=== PATIENT | female | born 1945 | race Caucasian/White ===

== ENCOUNTER 2016-09-25 14:48 | Emergency (ER) | payer MEDICARE, OTHER ==
[~2016-09-25] VITALS: Ht 162.6 cm; Wt 140.0 kg
[~2016-09-25 14:48] MED LIST: ASPI81CH3 CHEW; CARV12.52 PO; DAKINSHST TOPICAL; GABA400C5 PO; HYDR-2374 PO; LIDO2GEL11 TOPICAL; LIPI10TA PO; LOSA50TA PO
[2016-09-25 14:50] VITALS: BP 150/70; PULSE 61; RESP 17; TEMP 97.9; O2SAT 97
[2016-09-25] MEDS ORDERED: GABA400C5 PO (18:38)
--- NOTE | 2016-09-25 18:43 | PD ---
HPI Chief Complaint: Fall Time Seen by Provider: 18:27 Travel History International Travel<30 days: No Contact w/Intl Traveler<30days: No Traveled to known affect area: No History of Present Illness HPI 71-year-old female here for evaluation of left hand laceration, left hand pain, left-sided rib pain after a mechanical trip and fall at around 2:30 PM this afternoon. Patient reports that she was holding a wine glass in each of her hands when she tripped and fell to the ground. She reports a laceration to the dorsal aspect of her left hand with significant amount of bleeding. She stopped taking aspirin 81 mg daily about a week ago, however took a dose yesterday. She denies any other antiplatelets or anticoagulants. She is complaining of some numbness/tingling in her left fifth finger. She is right- handed. She denies dyspnea, however is having left-sided chest discomfort with inspiration as well as left-sided chest tenderness. She denies head injury or LOC. No head, neck, or back pain. PFSH Past Medical History Diabetes: Yes Social History Tobacco Use: No (Former smoker) Allergies-Medications (Allergen,Severity, Reaction): Coded Allergies: No Known Allergies (Unverified , 09/25/16) Reported Meds & Prescriptions Reported Meds & Active Scripts Active Dakins Solution Half Strength Topical (Sodium Hypochlorite) 0.2-0.25 % Soln 473 Ml TOPICAL DAILY Hydrocodone-Acetaminophen 10-300 Tab 1 Tab PO Q6H PRN Reported Gabapentin 400 Mg Cap 400 Cap PO HS Aspirin 81 Low Dose (Aspirin) 81 Mg Chew 81 Mg CHEW DAILY Carvedilol 12.5 Mg Tab 12.5 Mg PO BID Lipitor (Atorvastatin Calcium) 10 Mg Tab 10 Mg PO HS Losartan (Losartan Potassium) 50 Mg Tab 50 Mg PO BID Review of Systems Except as stated in HPI: all other systems reviewed are Neg Physical Exam Narrative GENERAL: Well-developed, well-nourished, pleasant, comfortable, GCS 15, no apparent distress. SKIN: Focused skin assessment warm/dry. Dorsal aspect of left hand with horizontal laceration over the fourth and fifth MCP joint, moderate depth, approximately 4cm in length, no visible contaminants, mild venous bleeding. HEAD: Atraumatic. Normocephalic. EYES: Pupils equal and round. No scleral icterus. No injection or drainage. ENT: Mucous membranes pink and moist. NECK: Trachea midline. No JVD. CARDIOVASCULAR: Regular rate and rhythm. Bilateral distal radial pulses are brisk and equal. Capillary refill in all of left hand is less than 2 seconds. RESPIRATORY: No accessory muscle use. Clear to auscultation. Breath sounds equal bilaterally. GASTROINTESTINAL: Abdomen soft, nondistended. Moderate left upper quadrant abdominal tenderness without peritoneal signs. Rest of abdomen is soft and nontender. MUSCULOSKELETAL: No obvious deformities. No clubbing. No cyanosis. No edema. Left anterior and lateral chest wall tenderness without step-off, without crepitus, without paradoxical chest wall movement. Skin exam as above. Patient unable to extend her left fourth and fifth fingers at the MCP joint. She is able to flex these fingers, however this causes pain. NEUROLOGICAL: Awake and alert. No obvious cranial nerve deficits. Motor grossly within normal limits. Normal speech. PSYCHIATRIC: Appropriate mood and affect; insight and judgment normal. Data Data Last Documented VS Vital Signs Date Time Temp Pulse Resp B/P Pulse Ox O2 Delivery O2 Flow Rate FiO2 09/25/16 19:10 97 09/25/16 14:50 97.9 61 17 150/70 Orders Complete Blood Count With Diff (09/25/16 18:35) Comprehensive Metabolic Panel (09/25/16 18:35) Prothrombin Time / Inr (Pt) (09/25/16 18:35) Act Partial Throm Time (Ptt) (09/25/16 18:35) Iv Access Insert/Monitor (09/25/16 18:35) Ecg Monitoring (09/25/16 18:35) Oximetry (09/25/16 18:35) Sodium Chloride 0.9% Flush (Ns Flush) (09/25/16 18:45) Cefazolin 2 Gm Premix (Ancef 2 Gm Premix (09/25/16 18:45) Tetanus/Diphtheria Tox Adult (Tetanus/Di (09/25/16 18:45) Chest, Single Ap (09/25/16 ) Ct Abd/Pel W Iv Contrast(Rout) (09/25/16 18:35) Ct Thorax/ Chest W Iv Contrast (09/25/16 18:35) Hand, Complete (Xim0how) (09/25/16 ) Morphine Inj (Morphine Inj) (09/25/16 18:45) Ondansetron Inj (Zofran Inj) (09/25/16 18:45) Splint Or Brace Apply/Monitor (09/25/16 20:27) Povidone Iodine 10% Oint (Betadine 10% O (09/25/16 20:30) Iohexol 350 Inj (Omnipaque 350 Inj) (09/25/16 21:05) Fiberglass Splint Forearm Adul (09/25/16 ) Labs Laboratory Tests Test 09/25/16 19:00 White Blood Count 10.5 TH/MM3 Red Blood Count 4.20 MIL/MM3 Hemoglobin 12.3 GM/DL Hematocrit 36.5 % Mean Corpuscular Volume 87.1 FL Mean Corpuscular Hemoglobin 29.2 PG Mean Corpuscular Hemoglobin 33.6 % Concent Red Cell Distribution Width 13.5 % Platelet Count 241 TH/MM3 Mean Platelet Volume 8.7 FL Neutrophils (%) (Auto) 69.0 % Lymphocytes (%) (Auto) 22.2 % Monocytes (%) (Auto) 6.9 % Eosinophils (%) (Auto) 1.4 % Basophils (%) (Auto) 0.5 % Neutrophils # (Auto) 7.2 TH/MM3 Lymphocytes # (Auto) 2.3 TH/MM3 Monocytes # (Auto) 0.7 TH/MM3 Eosinophils # (Auto) 0.1 TH/MM3 Basophils # (Auto) 0.0 TH/MM3 CBC Comment DIFF FINAL Differential Comment Prothrombin Time 11.4 SEC Prothromb Time International 1.0 RATIO Ratio Activated Partial 25.6 SEC Thromboplast Time Sodium Level 140 MEQ/L Potassium Level 4.0 MEQ/L Chloride Level 105 MEQ/L Carbon Dioxide Level 26.9 MEQ/L Anion Gap 8 MEQ/L Blood Urea Nitrogen 19 MG/DL Creatinine 0.73 MG/DL Estimat Glomerular Filtration 79 ML/MIN Rate Random Glucose 95 MG/DL Calcium Level 9.2 MG/DL Total Bilirubin 1.3 MG/DL Aspartate Amino Transf 21 U/L (AST/SGOT) Alanine Aminotransferase 23 U/L (ALT/SGPT) Alkaline Phosphatase 87 U/L Total Protein 7.3 GM/DL Albumin 3.4 GM/DL [facility] Medical Decision Making Medical Screen Exam Complete: Yes Emergency Medical Condition: Yes Differential Diagnosis Hand laceration, tendon laceration, open hand fracture, rib fractures, hemothorax, pneumothorax, rib contusions, intra-abdominal trauma Narrative Course Vital signs show heart rate 61, blood pressure 150/70, pulse ox 97% on room air , oral temp of 97.9F. Left hand x-ray: No acute fracture or malalignment. Osteopenia and osteoarthritic changes. Case discussed with on-call hand surgeon Dr. Coffey regarding laceration over the dorsal aspect of the patient's left hand over the fourth and fifth MCP joints with likely tendon involvement as the patient is unable to extend her third and fourth fingers. The fingers are neurovascularly intact with normal capillary refill. Patient does complain of some numbness in her left fifth finger, however she does have sensation. There are no visible contaminants in the wound. He recommends closing the wound and splinting the patient's fingers in extension. He would like the patient to call his office tomorrow to arrange for a follow-up appointment tomorrow. Left hand laceration repaired by my PA. See his note for further details. CT thorax: CONCLUSION: Negative trauma CT. CT abdomen pelvis: CONCLUSION: 1. Negative trauma CT with no evidence of visceral injury 2. Mild to moderate diverticulosis. 3. Status post cholecystectomy Left third, fourth, and fifth fingers splinted in extension. Patient and the patient's were made aware of all findings. She is stable for discharge home. She has pain medication at home. She will follow- up with hand surgeon Dr. Coffey tomorrow. She was informed on when to return to the emergency department. She verbalizes understanding and agreement with plan. Diagnosis Primary Impression: Laceration of left hand Qualified Code: S61.412A - Laceration of left hand without foreign body, initial encounter Additional Impressions: Fall Qualified Code: W19.XXXA - Fall, initial encounter Chest wall contusion Qualified Code: S20.212A - Chest wall contusion, left, initial encounter Referrals: Nancy Coffey MD 1 day Hand surgeon Primary Care Physician 3 days Additional Instructions: Follow-up with hand surgeon Dr. Coffey tomorrow. Follow-up with your primary care physician this week. Return to the emergency department for worsening symptoms or any other concerns. Disposition: 01 DISCHARGE HOME Condition: Stable Chapincito Gandara MD Sep 25, 2016 18:43
[2016-09-25] MEDS ORDERED: TETANUS/DIPHTHERIA TOXOID ADULT 0.5 ML VIAL IM ONE (18:45)
[2016-09-25] MEDS ORDERED: MORPHINE SULFATE 4 MG/ML INJ IV PUSH ONE (18:45)
[2016-09-25] MEDS ORDERED: SODIUM CHLORIDE 0.9% FLUSH 10 ML FLUSH IV FLUSH PRN (18:45)
[2016-09-25] MEDS ORDERED: ceFAZolin 2 GM PREMIX 50 ML IV ONE (18:45)
[2016-09-25] MEDS ORDERED: ONDANSETRON HCL 4 MG/2 ML VIAL IV PUSH ONE (18:45)
--- NOTE | 2016-09-25 19:02 | RADRPT ---
EXAM DATE/TIME: 09/25/2016 18:47 [facility] COMPARISON: No previous studies available for comparison. INDICATIONS : Chest pain after fall.. MEDICAL HISTORY : None. SURGICAL HISTORY : None. ENCOUNTER: Initial ACUITY: 1 day PAIN SCORE: 10 LOCATION: Bilateral chest FINDINGS: A single view of the chest demonstrates the lungs to be symmetrically aerated without evidence of mas s, infiltrate or effusion. The heart size is mildly prominent. Osseous structures are intact. CONCLUSION: Mild cardiomegaly with no acute cardiopulmonary disease. David Nobles MD on September 25, 2016 at 19:00 Board Certified Radiologist. This report was verified electronically.
--- NOTE | 2016-09-25 19:04 | RADRPT ---
EXAM DATE/TIME: 09/25/2016 18:51 [facility] COMPARISON: No previous studies available for comparison. INDICATIONS : Fall, Laceration to left posterior hand at 4th and 5th metacarpals. Sliced hand falling when caring w ine glasses out of store. MEDICAL HISTORY : None. SURGICAL HISTORY : None. ENCOUNTER: Initial ACUITY: 1 day PAIN SCORE: 8/10 LOCATION: Left hand FINDINGS: AP, lateral and oblique views of left hand were obtained and demonstrate osteoarthritic change involv ing the interphalangeal joints greatest involving the third digit with joint space narrowing and hype rtrophic change. There is no definite acute fracture or malalignment. No definite radiopaque foreign bodies are identified. There is film artifact on the lateral exam projected over the fourth middle ph alanx. The carpus appears intact. There is osteopenia. CONCLUSION: 1. No acute fracture or malalignment. 2. Osteopenia and osteoarthritic change. David Nobles MD on September 25, 2016 at 19:01 Board Certified Radiologist. This report was verified electronically.
[2016-09-25 19:10] VITALS: O2SAT 97
[2016-09-25 19:29] LABS: AUTOMATED NEUTROPHIL # 7.2 TH/MM3 (1.8-7.7); BASOPHIL % 0.5 % (0.0-2.0); EOSINOPHIL # 0.1 TH/MM3 (0-0.4); EOSINOPHIL % 1.4 % (0.0-4.0); HEMATOCRIT 36.5 % (35.0-46.0); HEMO FLAGS DIFF FINAL; LYMPH % 22.2 % (9.0-44.0); LYMPHOCYTE # 2.3 TH/MM3 (1.0-4.8); MEAN CELL VOLUME 87.1 FL (80.0-100.0); MEAN CORPUSCULAR HEMOGLOBIN 29.2 PG (27.0-34.0); MEAN CORPUSCULAR HGB CONC 33.6 % (32.0-36.0); MONO % 6.9 % (0.0-8.0); PLATELET COUNT 241 TH/MM3 (150-450); RED CELL DISTRIBUTION WIDTH 13.5 % (11.6-17.2); WHITE BLOOD COUNT 10.5 TH/MM3 (4.0-11.0)
[2016-09-25 19:39] LABS: APTT (PATIENT) 25.6 SEC (24.3-30.1); PROTHROMBIN TIME - PATIENT 11.4 SEC (9.8-11.6)
[2016-09-25 19:57] LABS: ANION GAP 8 MEQ/L (5-15); AST (GOT) 21 U/L (15-37); BICARBONATE 26.9 MEQ/L (21.0-32.0); BLOOD UREA NITROGEN 19 MG/DL (7-18); CHLORIDE 105 MEQ/L (98-107); GLOMERULAR FILTRATION RATE 79 ML/MIN (>89); SODIUM (NA) 140 MEQ/L (136-145)
[2016-09-25 19:58] LABS: ALT (GPT) 23 U/L (10-53)
[2016-09-25 20:00] LABS: ALKALINE PHOSPHATASE 87 U/L (45-117); TOTAL BILIRUBIN ADULT 1.3 MG/DL (0.2-1.0)
[2016-09-25] MEDS ORDERED: POVIDONE IODINE 10% OINT 30 GM TUBE TOPICAL ONE (20:30)
--- NOTE | 2016-09-25 20:31 | PD ---
Physical Exam Date Seen by Provider: Sep 25, 2016 Time Seen by Provider: 20:29 Narrative Skin: Patient has a laceration across the distal third of the left hand. The laceration measures approximately 6 cm. She has an obvious extensor tendon injury involving the little and ring finger. Data Data Last Documented VS Vital Signs Date Time Temp Pulse Resp B/P Pulse Ox O2 Delivery O2 Flow Rate FiO2 09/25/16 19:10 97 09/25/16 14:50 97.9 61 17 150/70 Orders Complete Blood Count With Diff (09/25/16 18:35) Comprehensive Metabolic Panel (09/25/16 18:35) Prothrombin Time / Inr (Pt) (09/25/16 18:35) Act Partial Throm Time (Ptt) (09/25/16 18:35) Iv Access Insert/Monitor (09/25/16 18:35) Ecg Monitoring (09/25/16 18:35) Oximetry (09/25/16 18:35) Sodium Chloride 0.9% Flush (Ns Flush) (09/25/16 18:45) Cefazolin 2 Gm Premix (Ancef 2 Gm Premix (09/25/16 18:45) Tetanus/Diphtheria Tox Adult (Tetanus/Di (09/25/16 18:45) Chest, Single Ap (09/25/16 ) Ct Abd/Pel W Iv Contrast(Rout) (09/25/16 18:35) Ct Thorax/ Chest W Iv Contrast (09/25/16 18:35) Hand, Complete ([id number]) (09/25/16 ) Morphine Inj (Morphine Inj) (09/25/16 18:45) Ondansetron Inj (Zofran Inj) (09/25/16 18:45) Splint Or Brace Apply/Monitor (09/25/16 20:27) Povidone Iodine 10% Oint (Betadine 10% O (09/25/16 20:30) Labs Laboratory Tests Test 09/25/16 19:00 White Blood Count 10.5 TH/MM3 Red Blood Count 4.20 MIL/MM3 Hemoglobin 12.3 GM/DL Hematocrit 36.5 % Mean Corpuscular Volume 87.1 FL Mean Corpuscular Hemoglobin 29.2 PG Mean Corpuscular Hemoglobin 33.6 % Concent Red Cell Distribution Width 13.5 % Platelet Count 241 TH/MM3 Mean Platelet Volume 8.7 FL Neutrophils (%) (Auto) 69.0 % Lymphocytes (%) (Auto) 22.2 % Monocytes (%) (Auto) 6.9 % Eosinophils (%) (Auto) 1.4 % Basophils (%) (Auto) 0.5 % Neutrophils # (Auto) 7.2 TH/MM3 Lymphocytes # (Auto) 2.3 TH/MM3 Monocytes # (Auto) 0.7 TH/MM3 Eosinophils # (Auto) 0.1 TH/MM3 Basophils # (Auto) 0.0 TH/MM3 CBC Comment DIFF FINAL Differential Comment Prothrombin Time 11.4 SEC Prothromb Time International 1.0 RATIO Ratio Activated Partial 25.6 SEC Thromboplast Time Sodium Level 140 MEQ/L Potassium Level 4.0 MEQ/L Chloride Level 105 MEQ/L Carbon Dioxide Level 26.9 MEQ/L Anion Gap 8 MEQ/L Blood Urea Nitrogen 19 MG/DL Creatinine 0.73 MG/DL Estimat Glomerular Filtration 79 ML/MIN Rate Random Glucose 95 MG/DL Calcium Level 9.2 MG/DL Total Bilirubin 1.3 MG/DL Aspartate Amino Transf 21 U/L (AST/SGOT) Alanine Aminotransferase 23 U/L (ALT/SGPT) Alkaline Phosphatase 87 U/L Total Protein 7.3 GM/DL Albumin 3.4 GM/DL MDM Medical Record Reviewed: Yes Supervised Visit with LILLIAM: Yes Interpretation(s) Last 24 hours Impressions Hand X-Ray 09/25/16 0000 Signed Impressions: Service Date/Time: Sunday, September 25, 2016 18:51 - CONCLUSION: 1. No acute fracture or malalignment. 2. Osteopenia and osteoarthritic change. David Nobles MD Chest X-Ray 09/25/16 0000 Signed Impressions: Service Date/Time: Sunday, September 25, 2016 18:47 - CONCLUSION: Mild cardiomegaly with no acute cardiopulmonary disease. David Nobles MD Differential Diagnosis MDM: High Differential diagnoses: Fracture, sprain, strain, dislocation, contusion, neurovascular injury Narrative Course Patient has an extensor tendon laceration involving the little and ring finger of left hand. Dr. Coffey has been consulted and he has requested that the wound be closed and the patient placed in a splint in extension. Patient to call his office tomorrow. The patient's wound is closed with sutures. Procedures Procedure Narrative LACERATION LOCATION: Dorsal left hand LENGTH: 6 cm NUMBER OF STITCHES/EDGADRO: Single running REPAIR: The area of the laceration was prepped with Betadine and sterilely draped. The laceration was infiltrated with 1% lidocaine and 0.5% Marcaine. The wound was copiously irrigated and explored without evidence of foreign body , or neurovascular injury. Positive laceration of the extensor tendon of the little and ring finger. The wound was closed using 5-0 proline. This was a single layer repair. A sterile dressing was applied. The patient was advised to keep the dressing clean and dry. Patient tolerated the procedure well. Enmanuel Vargas Sep 25, 2016 20:31
[2016-09-25] MEDS ORDERED: IOHEXOL 350 MG/ML 10 ML VIAL (for RAD DIAG) IV ONE (21:05)
--- NOTE | 2016-09-25 21:13 | RADRPT ---
EXAM DATE/TIME: 09/25/2016 20:54 [facility] COMPARISON: No previous studies available for comparison. INDICATIONS : Trauma, fall today. Left sided pain. IV CONTRAST: 95 cc Omnipaque 350 (iohexol) IV ; Cumulative dose for multiple exams. ORAL CONTRAST: No oral contrast ingested. RADIATION DOSE: 23.29 CTDIvol (mGy) ; Combined studies - Thorax/Abdomen/Pelvis MEDICAL HISTORY : Hypertension. SURGICAL HISTORY : Cholecystectomy. ENCOUNTER: Initial ACUITY: 1 day PAIN SCALE: 6/10 LOCATION: Left abdomen TECHNIQUE: Volumetric scanning of the abdomen and pelvis was performed. Using automated exposure control and ad justment of the mA and/or kV according to patient size, radiation dose was kept as low as reasonably achievable to obtain optimal diagnostic quality images. DICOM format image data is available electro nically for review and comparison. FINDINGS: LOWER LUNGS: The visualized lower lungs are clear. LIVER: Homogeneous density without lesion. There is no dilation of the biliary tree. Status post cholecyste ctomy. SPLEEN: Normal size without lesion. PANCREAS: Within normal limits. KIDNEYS: Normal in size and shape. There is no mass, stone or hydronephrosis. ADRENAL GLANDS: Within normal limits. VASCULAR: There is no aortic aneurysm. BOWEL/MESENTERY: Diverticula present greatest in the sigmoid colon no definite wall thickening or inflammatory change. Gas pattern is unremarkable with no evidence of obstruction.ABDOMINAL WALL: Within normal limits. RETROPERITONEUM: There is no lymphadenopathy. BLADDER: No wall thickening or mass. REPRODUCTIVE: Within normal limits. INGUINAL: There is no lymphadenopathy or hernia. MUSCULOSKELETAL: Within normal limits for patient age. CONCLUSION: 1. Negative trauma CT with no evidence of visceral injury 2. Mild to moderate diverticulosis. 3. Status post cholecystectomy. David Nobles MD on September 25, 2016 at 21:10 Board Certified Radiologist. This report was verified electronically.
--- NOTE | 2016-09-25 21:14 | RADRPT ---
EXAM DATE/TIME: 09/25/2016 20:54 [facility] COMPARISON: No previous studies available for comparison. INDICATIONS : Trauma, fall today. Left sided chest pain. IV CONTRAST: 95 cc Omnipaque 350 (iohexol) IV ; Cumulative dose for multiple exams. RADIATION DOSE: 23.29 CTDIvol (mGy) ; Combined studies - Thorax/Abdomen/Pelvis MEDICAL HISTORY : Hypertension. SURGICAL HISTORY : Cholecystectomy. ENCOUNTER: Initial ACUITY: 1 day PAIN SCALE: 6/10 LOCATION: Left chest TECHNIQUE: Volumetric scanning of the chest was performed. Using automated exposure control and adjustment of t he mA and/or kV according to patient size, radiation dose was kept as low as reasonably achievable to obtain optimal diagnostic quality images. DICOM format image data is available electronically for review and comparison. FINDINGS: LUNGS: There is no consolidation or pneumothorax. No concerning pulmonary nodule is visualized. PLEURA: There is no pleural thickening or pleural effusion. MEDIASTINUM: The heart and great vessels demonstrate no acute abnormality. There is no mediastinal or hilar lymph adenopathy. Mild coronary artery calcifications are present. AXILLAE: Within normal limits. No lymphadenopathy. SKELETAL: Within normal limits for patient age. MISCELLANEOUS: The visualized upper abdominal organs demonstrate no acute abnormality. The patient is status post ch olecystectomy. CONCLUSION: Negative trauma CT. David Nobles MD on September 25, 2016 at 21:12 Board Certified Radiologist. This report was verified electronically.
[2016-09-27] MEDS ORDERED: IBUP800T23 PO (14:16)
== END 2016-09-25 22:30 | disposition home or self-care (01) ==
LOC: NEPD 14:48
DX: S61.412A Laceration without foreign body of left hand, initial encounter (principal); S20.212A Contusion of left front wall of thorax, initial encounter; M19.042 Primary osteoarthritis, left hand; K57.90 Diverticulosis of intestine, part unspecified, without perforation or abscess without bleeding; E11.9 Type 2 diabetes mellitus without complications; Z79.82 Long term (current) use of aspirin; Z79.899 Other long term (current) drug therapy; W01.0XXA Fall on same level from slipping, tripping and stumbling without subsequent striking against object, initial encounter; Z23 Encounter for immunization
CPT/HCPCS: 12002; 71010; 71260; 73130; 74177; 80053; 85025; 85610; 85730; 90471; 90714; 96374; 96375; 99285; J0690; J2270; J2405; Q9967

== ENCOUNTER → 2016-09-27 | Day surgery (SDC) | payer MEDICARE, OTHER ==
[~2016-09-27] VITALS: Ht 162.6 cm; Wt 139.0 kg
[~2016-09-27] MED LIST changes: +BUPIVACAINE HCL PF 0.5% 30 ML VIAL ONE; +CHLORHEXIDINE GLUCONATE 2 % 1 PACK (2 CLOTHS) TOPICAL PRN; +DEXT 5%-NACL 0.45% 1000 ML INJ 1,000 ML IV SCH; +FAMOTIDINE 20 MG/2 ML VIAL ONE; +IBUP800T23 PO; +IBUPROFEN 800 MG TAB ONE; +INSULIN HUMAN REGULAR 1,000 UNITS/10 ML VIAL SQ PRN; +LACTATED RINGER'S 1000 ML IV PRN; -LIDO2GEL11 TOPICAL; +METOPROLOL TARTRATE 25 MG TAB PO PRN; +MIDAZOLAM HCL 2 MG/2 ML VIAL ONE; +MORPHINE SULFATE 4 MG/ML INJ ONE; +ONDANSETRON HCL 4 MG/2 ML VIAL IV PUSH ONE; +POVIDONE IODINE 5% (ANTISEPSIS KIT) 4 APPLICATIONS EACH NARE PRN; +PROPOFOL 200 MG/20 ML AMP IV ONE; +SODIUM CHLORID 0.9% 500 ML IV PRN; +SODIUM CHLORIDE 0.9% FLUSH 5 ML FLUSH IVF PRN; +SODIUM CHLORIDE 0.9% FLUSH 5 ML FLUSH IVF SCH; +ceFAZolin 2 GM PREMIX 50 ML IV SCH
[2016-09-27 10:22] VITALS: BP 131/59; PULSE 65; RESP 18; TEMP 98; O2SAT 95
--- NOTE | 2016-09-27 12:14 | HP.UPD ---
H&P Update Date: Sep 27, 2016 Note The Pre-Admit History and Physical Examination regarding the above named patient was reviewed (including, but not limited to, vital signs, medications, allergies, co-morbid conditions), and upon re-examination it is noted that: Indicated with "X" x - the patient's condition has not significantly changed since the last examination. [] - the patient's condition has changed since the last examination. Changes: Nancy Coffey MD Sep 27, 2016 12:13
[2016-09-27 14:13] VITALS: PULSE 68
--- NOTE | 2016-09-27 14:18 | HHI.PR ---
Immediate Post Op Note Procedure Date: Sep 27, 2016 Pre Op Diagnosis: (1) Extensor tendon laceration of hand with open wound Post Op Diagnosis: (1) Extensor tendon laceration of hand with open wound Surgeon: Nancy Coffey Inspector Packager(s): None Procedure: Repair extensor digitorum communists to the left ring finger. Repair of Extensor digit minimi left hand. Anesthesia: General Drains: None Tourniquet time (min at mmHg) 48 minutes at 250 mmHg Patient to: PACU Patient Condition: Good Date/Time of Procedure: SEE SURGICAL CARE RECORD Nancy Coffey MD Sep 27, 2016 14:18
[2016-09-27 15:40] VITALS: BP 133/61; PULSE 72; RESP 14; TEMP 98.5; O2SAT 95
--- NOTE | 2016-09-27 19:02 | EKG ---
Date Performed: 09/27/2016 Time Performed: 10:48:58 PTAGE: 71 years EKG: Sinus rhythm MODERATE INTRAVENTRICULAR CONDUCTION DELAY VOLTAGE CRITERIA FOR LVH ABNORMAL ECG NO PREVIOUS TRACING DOCTOR: Isael Wu Interpretating Date/Time 09/27/2016 19:01:12
--- NOTE | 2016-09-28 06:56 | MP ---
cc: SANDIP SHEN M.D. DATE OF SURGERY 09/27/2016 PREOPERATIVE DIAGNOSIS 1. Lacerated extensor tendon to the left ring finger. 2. Lacerated sensor tendon to the left fifth finger. POSTOPERATIVE DIAGNOSIS 1. Lacerated extensor tendon to the left ring finger. 2. Lacerated sensor tendon to the left fifth finger. PROCEDURE 1. Repair of extensor digitorum communi to the left ring finger. 2. Repair extensor digiti minimi to the left fifth finger. ANESTHESIA General SURGEON Sandip Shen MD INDICATIONS This is a 71-year-old female who fell lacerating her left hand several days ago. FINDINGS The tendons were completely cut. At the completion of the procedure, they were repaired. TOURNIQUET TIME 48 minutes PROCEDURE The patient was seen preoperatively where the site and side were identified and marked. The patient was then taken to the operating room, placed in a supine position. Her identity was checked against the arm and then the consent form site and side confirmed, time-out called prior to the beginning of the procedure. The left upper extremity was prepped with Hibiclens and draped in the usual sterile fashion. The arm was exsanguinated and tourniquet inflated to 250 mmHg. The previous placed sutures were removed and the wound was copiously irrigated with saline. Bupivacaine 0.5% plain was used to make a block dorsally proximal to the laceration as well as into the stitches themselves. The wound was inspected, clot was removed. The tendons were identified. First the proximal end of the tendon to the ring finger was identified. It was debrided and then the distal end was identified. Attention was turned to the extensor digiti minimi which was identified proximally and debrided as was the distal end. There was also a rent in the capsule which was repaired with 4-0 Vicryl. The ulnar collateral ligament was also partially lacerated at the MP joint of the fifth finger and this was also repaired with 4-0 Vicryl. [id number] sutures were then used to repair the tendons by placing a stitch first in the skin down to the far tendon and the near tendon and then came out through the far end of the skin to make the [id number]. Six of these were placed, three in each tendon and they were pulled together and that showed good approximation. The skin was then repaired with 5-0 nylon suture material making eversion at the edges. The sutures which had been placed were dressed with povidone-iodine ointment and then Telfa rolled up was placed on top of the sutures and the suture ends, which had been left long on each of the [id number], was sequentially tied over the bolus there by completing the repair. Once all six had been tied, the tourniquet was released after 48 minutes of tourniquet time. Pressure was applied. After several minutes, there was no evidence of any oozing. A dressing was applied using povidone-iodine ointment, Adaptic Telfa, 4x4s, hand wrap and a palmar based splint to keep the fifth fingers and wrist in extension. The patient was then taken from the operating room to the recovery room in satisfactory condition having tolerated the procedure well. Postoperative instructions include keeping the arm elevated, keeping the area clean and dry and returning next week for follow up. MD ASHWINI Monique/MALA /2:24 PM /6:48 AM B[facility]IN
== END | disposition home or self-care (01) ==
LOC: PHSDC 08:50
PROVIDERS: ATTEND Specialist
DX: S66.327A Laceration of extensor muscle, fascia and tendon of left little finger at wrist and hand level, initial encounter (principal); S66.325A Laceration of extensor muscle, fascia and tendon of left ring finger at wrist and hand level, initial encounter; W19.XXXA Unspecified fall, initial encounter
CPT/HCPCS: 26418; 93005; J0690; J2250; J2270; J2405; J7120